=== PATIENT | female | born 1970 | race Caucasian/White ===

== ENCOUNTER 2017-10-02 16:51 | Emergency (ER) | payer OTHER ==
[2017-10-02] MEDS ORDERED: Ketorolac Tromethamine 30 MG/ML VIAL ONE (17:11)
[2017-10-02] MEDS ORDERED: methylPREDNISolone Sod Succ/PF 125 MG/2 ML VIAL ONE (17:11)
[2017-10-02] MEDS ORDERED: Lorazepam 2 MG/ML VIAL ONE (17:11)
== END 2017-10-02 17:46 | disposition home or self-care (01) ==
LOC: NAV ERS 16:51
DX: R50.9 Fever, unspecified (principal); R05 Cough
CPT/HCPCS: 94640; 96374; 96375; J1885; J2060; J2930; J7620

== ENCOUNTER 2018-01-13 09:51 | Outpatient (CLI) | payer OTHER ==
--- NOTE | 2018-01-13 14:03 | ULT ---
ABDOMINAL ULTRASOUND: 01/13/2018 HISTORY: Abdominal pain. FINDINGS: The gallbladder is not visualized, consistent with the reported history of a cholecystectomy. The co mmon duct is normal in caliber, measuring 0.4 cm in diameter. The spleen is not well seen but, where visualized, does demonstrate a normal sonographic appearance. The liver, visualized portions of the pancreas, visualized portions of the IVC, abdominal aorta, and bilateral kidneys demonstrate a normal sonographic appearance. The right kidney measures 9.8 cm in l ength, and the left kidney measures 10.4 cm in length. IMPRESSION: 1. Absence of the gallbladder, consistent with the reported history of a cholecystectomy. 2. No acute findings are seen on this abdominal ultrasound examination. POS: [facility]
== END 2018-01-13 09:52 | disposition home or self-care (01) ==
LOC: NAV ULT 09:51
PROVIDERS: ATTEND Internal Medicine Gastroenterology
DX: R10.9 Unspecified abdominal pain (principal); Z90.49 Acquired absence of other specified parts of digestive tract
CPT/HCPCS: 76700